=== PATIENT | female | born 1940 | race Caucasian/White ===

== ENCOUNTER → 2024-06-09 17:00 | Outpatient (REF) | payer OTHER, SELFPAY | LOC: RCS 17:00 | PROVIDERS: ATTENDING PHYSICIAN Internal Medicine Cardiovascular Disease; FAMILY PHYSICIAN Family Medicine | DX: Z01.818 Encounter for other preprocedural examination (principal); R06.02 Shortness of breath | CPT/HCPCS: 93306 ==

== ENCOUNTER → 2024-06-10 07:26 | Outpatient (REF) | payer OTHER, SELFPAY ==
[2024-06-10] MEDS: LEXISCAN 0.4 MG IV (09:09)
[2024-06-10] MEDS: AMINOPHYLLINE 75 MG IV (09:30)
== END ==
LOC: RCS 07:26
PROVIDERS: ATTENDING PHYSICIAN Internal Medicine Cardiovascular Disease; FAMILY PHYSICIAN Family Medicine
DX: Z01.818 Encounter for other preprocedural examination (principal); R06.02 Shortness of breath
CPT/HCPCS: 78452; 93017; A9500; J2785

== ENCOUNTER 2024-06-14 09:04 | Inpatient (IN) | payer OTHER, SELFPAY ==
[2024-06-07 13:59] LABS: Hematocrit 41.1 % (37.0-47.0); Hemoglobin 14.5 g/dL (12.0-16.0); Mean Corp Hgb Conc. 35.3 g/dL (33.0-37.0); Mean Corpuscular Hgb 30.4 pg (27.0-31.0); Mean Corpuscular Volume 86.2 fL (81.0-99.0); Mean Platelet Volume 9.9 fL (7.4-10.4); Platelet Count 175 10^3/uL (130-400); Red Blood Cell Count 4.77 10^6/uL (4.20-5.40); Red Cell Dist. Width 11.9 % (11.5-14.5); White Blood Cell Count 7.3 10^3/uL (4.8-10.8)
[2024-06-07 14:21] VITALS: BMI 27.9
[2024-06-07 14:38] LABS: ALT (SGPT) 55 U/L (0-35); AST (SGOT) 58 U/L (14-36); Albumin 4.4 g/dl (3.5-5.0); Alkaline Phosphatase 87 U/L (38-126); Blood Urea Nitrogen 12 mg/dl (7-17); Calcium 9.8 mg/dl (8.4-10.2); Carbon Dioxide 27 mmol/L (22-30); Chloride 106 mmol/L (98-107); Estimated Creatinine Clearance 59 ml/min; Glucose 105 mg/dl (70-99); Potassium 4.1 mmol/L (3.5-5.1); Sodium 141 mmol/L (135-145); Total Bilirubin 0.8 mg/dl (0.2-1.3); Total Protein 7.3 g/dl (6.3-8.2); eGFR > 60.00
[2024-06-07 15:18] VITALS: BMI 27.9
--- NOTE | 2024-06-08 09:47 | VNURNOTE ---
Chart reviewed. Rec'ed update via T.T. from Ly Mehta that patient will most likely need home PT, VN after DC. [facility] referral placed in [facility]. Patient will have a CM during hospital admission to further assess DC dispo. Liaison will
follow up after surgery.
[2024-06-08 10:51] LABS: Glycohemoglobin (HgbA1c) 5.7 % (4.0-5.6)
[2024-06-14] VITALS (10 sets, daily range): BP systolic 118–159; BP diastolic 57–88; PULSE 77; O2SAT 93; BMI 27.9
[2024-06-14] MEDS: NORMOSOL-R/PLASMALYTE-A 1000 IV ×2 (10:02→16:04)
[2024-06-14] MEDS: BACTROBAN NASAL 1 GRAM NASAL (10:02)
[2024-06-14] MEDS: TYLENOL 650 MG PO ×3 (10:02→22:34)
[2024-06-14] MEDS: CELEBREX 200 MG PO (10:02)
[2024-06-14] MEDS: ROXICODONE 5 MG PO (14:05)
--- NOTE | 2024-06-14 14:18 | W.PN.UPDATE ---
Update Note
Progress Note Update
R knee OA s/p R TKA w/ Dr Matute 06/14/24
- s/p L TKA, 06/2022, by Dr Matute
DVT prophylaxis - ASA, b/l venous foot pumps
HTN - + parameters - monitor BP
Abnormal EKG; pre-operative echo and stress test stable - monitor on tele
GERD - continue Protonix HS
Irritable bowel syndrome with diarrhea - Colace ONLY initially for post-surgical bowel regimen
Balance difficulties - on fall precautions
Cervical nerve root impingement with radiculopathy - consider Gabapentin or Lyrica
Prurigo nodularis of extremities, improving with CeraVe - would benefit from Cefadroxil upon d/c
Mildly elevated transaminases - reduce max dose of Tylenol daily
Hyperlipidemia
Mild valvular disease
Chronic dyspnea on exertion
Spinal stenosis
History of paraspinal hematoma with abscess
Glaucoma
Insomnia
Anxiety
Depression
Prediabetes, A1c 5.7
--- NOTE | 2024-06-14 14:30 | PTCARENOTE ---
Pt received from the PACU via bed. Transport was w/o incident. Pt is AAOx3, HR sl irreg. Lungs are clear, resp. easy, pulse ox 94%on 3L via nc. Will reevaluate oxygen need and titrate as ordered. Pt denies nausea and reports pain as 'mild' at this
time. VSS, pt is afebrile. Right knee with primaseal dressing intact, small amount of shadowing noted. Thigh high TEDS maintained. Pt instructed on plan of care, Pt verbalized understanding of instructions. Call jackson is within reach.
[2024-06-14] MEDS: ROXICODONE 10 MG PO (16:04)
[2024-06-14] MEDS: ANCEF 5 IV (17:24)
[2024-06-14] MEDS: ASPIRIN 325 MG PO (17:25)
[2024-06-14] MEDS: DILAUDID 0.5 MG IV ×2 (18:32→23:30)
[2024-06-14] MEDS: DECADRON 4 MG PO (19:50)
[2024-06-14] MEDS: COLACE 100 MG PO (19:50)
[2024-06-14] MEDS: BACTROBAN 2% OINTMENT 1 APPLIC NASAL (19:50)
[2024-06-14] MEDS: ZOLOFT 100 MG PO (22:34)
[2024-06-14] MEDS: CRESTOR 20 MG PO (22:34)
[2024-06-14] MEDS: ATARAX 25 MG PO (22:34)
[2024-06-14] MEDS: LOTREL 5 MG/20 MG 1 CAPSULE PO (22:34)
[2024-06-14] MEDS: PROTONIX 40 MG PO (22:34)
[2024-06-15] MEDS: ANCEF 5 IV (02:09)
[2024-06-15 03:15] VITALS: BP 98/50
[2024-06-15] MEDS: TYLENOL 650 MG PO ×2 (04:37→10:29)
[2024-06-15] MEDS: ROXICODONE 10 MG PO (04:41)
[2024-06-15] MEDS: DILAUDID 0.5 MG IV (04:55)
[2024-06-15 07:16] VITALS: BP 105/54
[2024-06-15] MEDS: DECADRON 4 MG PO (08:36)
[2024-06-15] MEDS: NEURONTIN 200 MG PO (08:36)
[2024-06-15] MEDS: ASPIRIN 325 MG PO (08:37)
[2024-06-15] MEDS: MOBIC 15 MG PO (08:37)
[2024-06-15] MEDS: DILAUDID 4 MG PO ×2 (08:37→13:10)
[2024-06-15] MEDS: LIDOCAINE 4% PATCH 2 PATCH TOPICAL (08:37)
[2024-06-15] MEDS: BACTROBAN 2% OINTMENT 1 APPLIC NASAL (09:04)
[2024-06-15] MEDS: COLACE PO (09:06)
--- NOTE | 2024-06-15 10:20 | VNURNOTE ---
[facility] liaison spoke with patient. Confirmed address she will be staying at. She has had [facility] in the past, about 2 years ago per pt. Patient aware that VN will contact her within 1-2 days to schedule. Referral updated with daughter's address.
--- NOTE | 2024-06-15 10:23 | W.PN.ORTHO ---
Today's Communication / Plan
-
Monitor pain w/ pain med adjustments.
Work w/ PT and OT as able.
D/c later today if remaining clinically stable.
Assessment
.
Distal Motor Intact: Yes
Dressing:
Scant areas of old incisional bleeding.
Assessment:
R knee OA s/p R TKA w/ Dr Matute 06/14/24
- s/p L TKA, 06/2022, by Dr Matute
DVT prophylaxis - ASA, b/l venous foot pumps
R knee pain - will d/c Oxycodone in favor of PO Dilaudid
- Add Gabapentin for neuropathic pain
- Lidocaine patches
- Monitor
HTN - + parameters - BPs overall stable
Abnormal EKG; pre-operative echo and stress test stable - maintaining NSR on tele
GERD - continue Protonix HS
Irritable bowel syndrome with diarrhea - per pt preference Colace/Senna prn upon d/c
Balance difficulties - on fall precautions
Cervical nerve root impingement with radiculopathy - consider Gabapentin or Lyrica
Prurigo nodularis of extremities, improving with CeraVe - would benefit from Cefadroxil upon d/c
Mildly elevated transaminases - reduced max dose of Tylenol daily
Hyperlipidemia
Mild valvular disease
Chronic dyspnea on exertion
Spinal stenosis
History of paraspinal hematoma with abscess
Glaucoma
Insomnia
Anxiety
Depression
Prediabetes, A1c 5.7
Plan
.
Surgery / Date: R TKA w/ Dr Matute 06/14/24
DVT Prophylaxis: Aspirin
Activity:
Out of bed.
PT/OT
Discharge Plan: Home w/ VN
Subjective
.
.:
Patient examined resting in bed.
R knee pain reportedly an issue overnight - pain meds adjusted.
Denies any other new significant complaints.
Eager for potential d/c later today.
Vital Signs and Labs
.
Vital Signs and Labs:
Lab Results
06/07/24 13:29
06/07/24 13:29
Temp Pulse Resp BP Pulse Ox
97.9 F 68 16 105/54 92
06/15/24 07:16 06/15/24 07:16 06/15/24 07:16 06/15/24 07:16 06/15/24 07:16
Non-invasive Hgb result: 12.3
Physical Exam
-
HEENT: No pallor, cyanosis, or jaundice. Throat clear.
NECK: Supple. No JVD.
RESPIRATORY: Lungs clear to auscultation.
CVS: S1, S2 normal. RRR.�
ABDOMEN: Soft, non-tender. No distension.
EXTREMITIES: Expected post-surgical R knee edema. Strength equal, no calf pain with palpation/dorsiflexion. Calves soft. B/l LE skin lesions improved since pre-op assessment.
CLIENT EXECUTIVE: AOx3. No focal deficits. 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
[2024-06-15] MEDS: MAALOX 30 ML PO (10:32)
--- NOTE | 2024-06-15 10:41 | W.DS.TRANS ---
DC Summary - [employer]
-
Discharge Instructions:
Sleep Apnea Risk Intermediate
Discharge Diagnosis/Procedures R knee OA s/p R TKA w/ Dr Matute 06/14/24
Diet Regular
Activity As tolerated,With Walker
Driving Restrictions Not until seen by your Dr
Other Services PT,VN
Wound Care Dressing to be removed 1 week post-surgery.
[place] to be removed at 2 week follow-up with
surgeon's office.
Instructions:
Stand-Alone Forms: SDS Total Hip and Knee D/C
Changes to Home Medications: Yes
Discharge Medications:
DC Medications w/original date entered in [facility]
sertraline 100 mg tablet 100 mg PO HS Depression 01/03/09
pantoprazole 40 mg tablet,delayed release 40 mg PO HS Gastrointestinal issue 04/11/18
melatonin 5 mg tablet 10 mg PO HS PRN sleep 06/13/22
rosuvastatin 20 mg tablet 20 mg PO HS High cholesterol 06/13/22
aluminum-mag hydroxide-simethicone 200 mg-200 mg-20 mg/5 mL oral susp 5 ml PO DAILYPRN PRN reflux 06/04/24
hydroxyzine HCl 25 mg tablet 25 mg PO HS Mental Health/Anxiety 06/04/24
mupirocin 2 % topical ointment 1 applic intranasal BID #1 tube 06/07/24
Saccharomyces boulardii 250 mg capsule (Florastor) 250 mg PO BID #14 caps 06/15/24
acetaminophen 500 mg tablet (Tylenol Extra Strength) 1,000 mg (2 x 500 mg) PO Q8H #0 tabs 06/15/24
albuterol sulfate 90 mcg/actuation aerosol inhaler 1 puff inhalation DAILY PRN shortness of breath #0 grams 06/15/24
amlodipine 5 mg-benazepril 20 mg capsule 1 cap PO HS Blood Pressure #1 cap 06/15/24
aspirin 325 mg tablet 325 mg PO DAILY #30 tabs 06/15/24
cefadroxil 500 mg capsule 500 mg PO BID #14 caps 06/15/24
dexamethasone 4 mg tablet 4 mg PO BID Anti-inflammatory #5 tabs 06/15/24
dicyclomine 10 mg capsule 10 mg PO BID PRN stomach issues #0 caps 06/15/24
docusate sodium 100 mg capsule 100 mg PO BID PRN constipation #30 caps 06/15/24
gabapentin 100 mg capsule 200 mg (2 x 100 mg) PO TID neuropathic pain #30 caps 06/15/24
hydromorphone 2 mg tablet (Dilaudid) 2 - 4 mg (1 - 2 x 2 mg) PO Q6H PRN moderate-severe pain #29 tabs 06/15/24
lidocaine 4 % topical patch 2 patch topical DAILY #30 ea 06/15/24
meloxicam 15 mg tablet 15 mg PO DAILY #14 tabs 06/15/24
ondansetron HCl 4 mg tablet 4 mg PO Q6H PRN nausea and vomiting #30 tabs 06/15/24
sennosides 8.6 mg tablet (Ruthie-johann) 17.2 mg (2 x 8.6 mg) PO BID PRN constipation #30 tabs 06/15/24
Home Medication Changes
Saccharomyces boulardii 250 mg capsule (Florastor) 250 mg PO BID #14 caps 06/15/24
acetaminophen 500 mg tablet (Tylenol Extra Strength) 1,000 mg (2 x 500 mg) PO Q8H #0 tabs 06/15/24
aspirin 325 mg tablet 325 mg PO DAILY #30 tabs 06/15/24
cefadroxil 500 mg capsule 500 mg PO BID #14 caps 06/15/24
dexamethasone 4 mg tablet 4 mg PO BID Anti-inflammatory #5 tabs 06/15/24
docusate sodium 100 mg capsule 100 mg PO BID PRN constipation #30 caps 06/15/24
gabapentin 100 mg capsule 200 mg (2 x 100 mg) PO TID neuropathic pain #30 caps 06/15/24
hydromorphone 2 mg tablet (Dilaudid) 2 - 4 mg (1 - 2 x 2 mg) PO Q6H PRN moderate-severe pain #29 tabs 06/15/24
lidocaine 4 % topical patch 2 patch topical DAILY #30 ea 06/15/24
meloxicam 15 mg tablet 15 mg PO DAILY #14 tabs 06/15/24
ondansetron HCl 4 mg tablet 4 mg PO Q6H PRN nausea and vomiting #30 tabs 06/15/24
sennosides 8.6 mg tablet (Ruthie-johann) 17.2 mg (2 x 8.6 mg) PO BID PRN constipation #30 tabs 06/15/24
Pending Results: No
--- NOTE | 2024-06-15 10:56 | CM ---
Addendum entered by Leslie Contreras 06/15/24 11:09:
IMM explained & signed. In chart
Original Note:
Patient seen at bedside.
Dx: R TKA
IA completed
CM consult completed. VN
PT yesterday rec HH - PT/OT to see patient today
Patient will be staying with her daughter Jeanie at [address], [place] [address]
Options reviewed with patient - Prefers [facility] - notified liaison - [facility], accepted
Patient lives in a multi-story home alone, with 1 step to enter
PLOF: Independent no assistive device used
DME: walker, cane
Has had [facility] in past, denies rehab
denies insecurities
Spoke with daughter Jeanie of plan, agreeable
PCP: Jr Hobbs
Pharmacy: [address], [place]
Plan: Home with [facility]
Daughter to transport
[2024-06-15 11:13] VITALS: BP 108/55
[2024-06-15 11:26] VITALS: BP 105/57; BP 122/58; PULSE 74; O2SAT 91
[2024-06-15 12:34] VITALS: BP 104/53; PULSE 68
== END 2024-06-15 14:57 | disposition home health service (06) | DRG 470 ==
LOC: 2 SOUTH 09:04
PROVIDERS: ADMITTING PHYSICIAN Specialist; FAMILY PHYSICIAN Family Medicine
PROC: 3E0436Z Introduction of Nutritional Substance into Central Vein, Percutaneous Approach (ICD-10-PCS; 2024-06-14)
PROC: 0SRC0J9 Replacement of Right Knee Joint with Synthetic Substitute, Cemented, Open Approach (ICD-10-PCS; 2024-06-14)
DX: M17.11 Unilateral primary osteoarthritis, right knee (principal); Z96.652 Presence of left artificial knee joint; M50.30 Other cervical disc degeneration, unspecified cervical region; I10 Essential (primary) hypertension; K21.9 Gastro-esophageal reflux disease without esophagitis; E78.00 Pure hypercholesterolemia, unspecified; K58.0 Irritable bowel syndrome with diarrhea; M48.00 Spinal stenosis, site unspecified; L28.1 Prurigo nodularis; H40.9 Unspecified glaucoma; G47.00 Insomnia, unspecified; F41.9 Anxiety disorder, unspecified; F32.A Depression, unspecified; R73.03 Prediabetes; Z88.0 Allergy status to penicillin; M54.12 Radiculopathy, cervical region
CPT/HCPCS: 36415; 73560; 80053; 83036; 85027; 87070; 93005; 97116; 97162; 97167; 97530; 97535; C1713; C1776

== ENCOUNTER → 2024-06-28 15:35 | Outpatient (REF) | payer OTHER, SELFPAY | LOC: RAD 15:35 | PROVIDERS: ATTENDING PHYSICIAN Physician Assistant; FAMILY PHYSICIAN Family Medicine | DX: M79.661 Pain in right lower leg (principal) | CPT/HCPCS: 93971 ==